=== PATIENT | female | born 1990 | race Two or more races ===

== ENCOUNTER 2018-04-28 10:15 | Outpatient (CLI) | payer MEDICAID | END 2018-04-28 12:34 | disposition home or self-care (01) | LOC: OBT 10:15 → L-D 10:15 → OBT 12:34 | DX: O40.3XX0 Polyhydramnios, third trimester, not applicable or unspecified (principal); Z3A.37 37 weeks gestation of pregnancy | CPT/HCPCS: 76815; 76818 ==

== ENCOUNTER 2018-05-02 10:15 | Outpatient (CLI) | payer MEDICAID ==
[2018-05-02 14:20] LABS: RUPTURE FETAL MEMBRANES NEGATIVE (NEGATIVE)
== END 2018-05-02 18:27 | disposition left against medical advice (07) ==
LOC: OBT 10:15 → L-D 10:15 → OBT 18:27
DX: O62.9 Abnormality of forces of labor, unspecified (principal); Z53.21 Procedure and treatment not carried out due to patient leaving prior to being seen by health care provider; Z3A.38 38 weeks gestation of pregnancy
CPT/HCPCS: 76815; 76818; 84112